=== PATIENT | female | born 1995 | race Caucasian/White ===

== ENCOUNTER 2019-04-08 12:38 | Emergency (ER) | payer BC ==
[2019-04-08 13:24] VITALS: BP 119/81
--- NOTE | 2019-04-08 13:49 | UC ---
Respiratory Complaint HPI - HPI Summary HPI Summary: Ms. Rahman was prescribed metronidazole about a week ago for "a yeast infection". Shortly after that she began to have an itchy nose which progressed to a scratchy throat and then a dry cough. (4 days ago) she stopped taking the metronidazole. Her symptoms have not resolved and she comes in mostly complaining of an itchy mouth. She is not short of breath but does complain of congestion. - History of Current Complaint Chief Complaint: UCGeneralIllness Stated Complaint: SINUS AND ORAL COMPLIANT Time Seen by Provider: 04/08/19 13:32 Hx Obtained From: Patient Hx Last Menstrual Period: iud Onset/Duration: Sudden Onset Timing: Constant Severity Initially: Moderate Severity Currently: Moderate Pain Intensity: 7 Character: Cough: Nonproductive Aggravating Factors: Nothing Alleviating Factors: Nothing - She is using some Benadryl but doesn't think that 's open Associated Signs And Symptoms: Positive: Nasal Congestion - Allergies/Home Medications Allergies/Adverse Reactions: Allergies Allergy/AdvReac Type Severity Reaction Status Date / Time metronidazole [From Flagyl] Allergy Itching Verified 04/08/19 13:25 Sulfa (Sulfonamide Allergy Hives Verified 04/08/19 13:25 Antibiotics) Home Medications: Home Medications NK [No Home Medications Reported] 04/08/19 [History Confirmed 04/08/19] PMH/Surg Hx/FS Hx/Imm Hx Psychological History: Anxiety - Surgical History Surgical History: None - Social History Alcohol Use: Occasionally Substance Use Type: None Smoking Status (MU): Never Smoked Tobacco Review of Systems All Other Systems Reviewed And Are Negative: Yes Constitutional: Positive: Negative Skin: Positive: Negative Eyes: Positive: Negative ENT: Positive: Nasal Discharge Respiratory: Positive: Cough Physical Exam - Summary Physical Exam Summary: She is nontoxic in appearance with stable vital signs. Triage Information Reviewed: Yes Appearance: Well-Appearing Vital Signs: Initial Vital Signs Temp 98.1 F 04/08/19 13:19 Pulse 72 04/08/19 13:19 Resp 20 04/08/19 13:19 BP 119/81 04/08/19 13:19 Pulse Ox 100 04/08/19 13:19 Vital Signs Reviewed: Yes Eye Exam: Normal ENT Exam: Normal Neck exam: Normal Respiratory Exam: Normal Cardiovascular Exam: Normal Abdominal Exam: Normal Respiratory Course/Dx - Course Course Of Treatment: I'm not sure what the etiology of her symptoms. I recommended that we switch her to hydroxyzine from Benadryl temporarily and have her follow up with her PCP - Differential Dx/Diagnosis Provider Diagnosis: Allergic reaction Discharge ED - Sign-Out/Discharge Documenting (check all that apply): Patient Departure All imaging exams completed and their final reports reviewed: No Studies - Discharge Plan Condition: Stable Disposition: HOME Patient Education Materials: Allergies (ED) Referrals: Alessandro GARRIDO,Patricia Chauhan [Primary Care Provider] - - Billing Disposition and Condition Condition: STABLE Disposition: Home
== END 2019-04-08 14:06 | disposition home or self-care (01) ==
LOC: UCEAST 12:38
DX: R05 Cough (principal); R09.81 Nasal congestion; R09.89 Other specified symptoms and signs involving the circulatory and respiratory systems; T37.8X5A Adverse effect of other specified systemic anti-infectives and antiparasitics, initial encounter; Z88.1 Allergy status to other antibiotic agents; Z88.2 Allergy status to sulfonamides; Y92.9 Unspecified place or not applicable
CPT/HCPCS: 99202; G0463